=== PATIENT | female | born 1995 | race Hispanic/Latino ===

== ENCOUNTER → 2022-01-01 | Outpatient (CLI) | payer BC | END | disposition home or self-care (01) | LOC: ICE 08:53 | PROVIDERS: ATTEND Hospitalist | DX: Z20.822 Contact with and (suspected) exposure to COVID-19 (principal) | CPT/HCPCS: 87426 ==

== ENCOUNTER 2022-10-23 10:01 | Emergency (ER) | payer OTHER, BC ==
[~2022-10-23] VITALS: Ht 165.1 cm; Wt 90.7 kg
[2022-10-23 10:06] VITALS: BP 123/78; PULSE 94; RESP 16; O2SAT 96
[2022-10-23 11:20] LABS: RAPID GROUP A STREP negative (NEGATIVE)
[2022-10-23 11:29] LABS: INFLUENZA TYPE A Negative For Type A (NEGATIVE)
[2022-10-23 12:17] LABS: INFLUENZA TYPE B Positive For Type B (NEGATIVE)
[2022-10-23 12:18] LABS: SARS-CoV-2, RNA, NAAT POSITIVE SARS CoV-2 (NEGATIVE)
[2022-10-23] MEDS ORDERED: BENZ200C53 PO (12:21)
[2022-10-23] MEDS ORDERED: OSEL75 PO (12:21)
[2022-10-23] MEDS ORDERED: ALBU90AE2 IH (12:21)
[2022-10-23] MEDS ORDERED: IBUP-2070 PO (12:21)
[2022-10-23] MEDS ORDERED: D-ME118S47 PO (12:33)
[2022-10-23 13:11] LABS: BILIRUBIN,URINE NEGATIVE (NEGATIVE); COLOR,URINE LIGHT-YELLOW (YELLOW); GLUCOSE, URINE (UA) NEGATIVE (NEGATIVE); KETONES,URINE NEGATIVE (NEGATIVE); LEUKOCYTE ESTERASE ,URINE NEGATIVE Leu/uL (NEGATIVE); NITRATE,URINE NEGATIVE (NEGATIVE); OCCULT BLOOD,URINE NEGATIVE (NEGATIVE); PH,URINE 7.5 (5.0-8.0); PROTEIN,URINE 10 mg/dL (NEGATIVE); UROBILINOGEN,URINE 0.2 mg/dL (0.2-1.0)
[2022-10-23 13:12] LABS: ADD UA MICROSCOPIC YES; APPEARANCE,URINE HAZY (CLEAR)
[2022-10-23 13:38] LABS: BACTERIA,URINE RARE /HPF (None Seen); MUCUS,URINE RARE LPF (None Seen); RBC,URINE 0-1 /HPF (0-1); SQUAMOUS EPITHELIAL CELL,UR FEW /HPF (0-2); WBC,URINE 0-1 /HPF (0-1)
[2022-10-23 13:43] LABS: HCG,QUALITATIVE URINE NEGATIVE (NEGATIVE)
== END 2022-10-23 13:40 | disposition home or self-care (01) ==
LOC: EDH 10:01
DX: U07.1 COVID-19 (principal); J10.1 Influenza due to other identified influenza virus with other respiratory manifestations; B34.9 Viral infection, unspecified; Z79.899 Other long term (current) drug therapy; Z98.890 Other specified postprocedural states
CPT/HCPCS: 99285; 71045; 87635; 87880; 87804 ×2; 81001; 81025; 93005; C9803

== ENCOUNTER → 2023-01-31 | Outpatient (CLI) | payer OTHER, BC ==
[~2023-01-31] MED LIST: ALBU90AE2 IH; BENZ200C53 PO; BROM118S48 PO; IBUP-2070 PO; OSEL75 PO
[2023-01-31 12:02] LABS: THYROID STIMULATING HORMONE 3.9 uIU/mL (0.36-3.74)
== END | disposition home or self-care (01) ==
LOC: LAB 09:40
PROVIDERS: ATTEND Psychiatry & Neurology Neurology
DX: G43.909 Migraine, unspecified, not intractable, without status migrainosus (principal)
CPT/HCPCS: 36415; 82607; 84443; 86592

== ENCOUNTER → 2024-01-26 | Outpatient (CLI) | payer OTHER ==
[~2024-01-26] MED LIST changes: -ALBU90AE2 IH; +ALBU90AE3 IH
== END | disposition home or self-care (01) ==
LOC: LAB 11:24
PROVIDERS: ATTEND Obstetrics & Gynecology
DX: Z13.79 Encounter for other screening for genetic and chromosomal anomalies (principal); Z3A.18 18 weeks gestation of pregnancy
CPT/HCPCS: 36415; 81420; 81422; 82105

== ENCOUNTER 2024-02-17 10:16 | Emergency (ER) | payer OTHER ==
[~2024-02-17] VITALS: Ht 167.6 cm; Wt 100.2 kg
[2024-02-17 10:17] VITALS: BP 110/74; PULSE 85; RESP 16; TEMP 97.9
--- NOTE | 2024-02-17 10:58 | ERN ---
ED Note History of Present Illness Stated Complaint: SORE THROAT, HEADACHE, COUGH Chief Complaint: Sore Throat Time Seen by MD: 10:20 Dictation: Patient is a 28-year-old female past history of migraines came to the ED with chief complaint of sore throat since this morning. Patient has been having headaches, sore throat, cough, 1 episode vomiting since this morning, patient is a 21 week . Patient denies chills, fever, shortness of breath, chest pain. Patient also informed about pain in the throat on swallowing Allergies: Coded Allergies: No Known Allergies (Unverified Allergy, Unknown, 10/23/22) Home Meds Active Scripts D-Methorphan Hb/P-Epd HCl/Bpm (Bromfed Dm Cough Syrup) 118 Ml Syrup, 10 ML PO Q4HPRN PRN for COUGH for 10 Days, #200 ML Prov:ARUNA URENA V [facility] 10/23/22 Albuterol Sulfate (Proair Digihaler) 90 Mcg Aer.pw.bas, 90 MCG IH TID, #1 BOTTLE Prov:ARUNA URENA V [facility] 10/23/22 Ibuprofen (Ibuprofen) 600 Mg Tablet, 600 MG PO Q6H PRN for PAIN, #30 TAB Prov:ARUNA URENA [facility] 10/23/22 Benzonatate (Benzonatate) 200 Mg Capsule, 200 MG PO TID PRN for COUGH for 14 Days, #42 CAP Prov:ARUNA URENA V [facility] 10/23/22 Oseltamivir Phosphate (Tamiflu) 75 Mg Cap, 75 MG PO BID, #10 CAP Prov:ARUNA URENA V [facility] 10/23/22 Past Medical History Past Medical History: Migraines, Other Additional Past Medical Hx: NOSE POLYPS, Surgical History: Other Surgical History Other: NASAL POLYPECTOMY LMP: Sep 21, 2023 : 1 Para: 0 Aborts: 0 Review of System Dictation Constitutional-no weight loss/gain, patient complains of chills and fever Eyes-no injury, pain, redness and discharge ENT-no injury, pain, swelling Cardiovascular no chest pain, palpitations, edema Respiratory no shortness of breath, wheezing. Patient has sore throat and cough Abdomen/GI-no abdominal pain, diarrhea, constipation, nausea. Patient had 1 episode of vomiting Back no injury and pain Genitourinary no injury, bleeding and discharge Musculoskeletal/extremities no injury, deformity Skin no rash, discoloration Neuro-no weakness, numbness, tingling, seizures, tremors. Patient complains of headache Psych-no suicidal ideation, homicidal ideation, hallucinations, depression, anxiety, memory loss Initial Vital Sign VS Vital Signs Date Time Temp Pulse Resp B/P (MAP) Pulse Ox O2 Delivery O2 Flow Rate FiO2 02/17/24 10:17 97.9 85 16 110/74 97 Room Air 0 Physical Exam Dictation General-patient is awake alert and oriented Head/neck-normocephalic, atraumatic posterior pharynx looks erythematous Eyes-PERRL, EOMI, vision at baseline Neck-trachea midline, supple, no nuchal rigidity Cardiovascular-RRR, normal S1/S2, no MRG is, no JVD Respiratory-no distress, wheezing, rales, rhonchi Abdomen-no tenderness, guarding, soft, nondistended Skin warm, dry, normal turgor, no rash Musculoskeletal/extremities pulses equal, no cyanosis Neuro-COA X 4, GCS 15, strength 5/5, CN 2-12 intact Psych-normal behavior, mood and affect normal Results (Laboratory/Radiology) Laboratory/Radiology Laboratory Tests Test 02/17/24 10:35 Influenza Type A Antigen Negative For Type A Influenza Type B Antigen Negative For Type B SARS-CoV-2 Antigen (Rapid) PRESUMPTIVE NEGATIVE Group A Streptococcus Rapid negative (NEGATIVE) ED Course ED Course Orders Procedure Category Date Status Time Influenza Type A & B, LAB 02/17/24 Complete Rapid 10:30 Covid19 (Sars Antigen LAB 02/17/24 Complete Rapid) 10:30 Rapid (Group A Strep) LAB 02/17/24 Complete 10:30 Mag/Alum/Simeth 30ml PHA 02/17/24 Complete (Maalox Plus 30ml) 11:30 Current Medications Medications (Trade) Dose Ordered Sig/Heavenly Route PRN Reason Start Time Stop Time Status Last Admin Dose Admin Al Hydroxide/Mg Hydroxide (MAALox PLUS 30ML) 15 ml ONCE ONCE PO 02/17/24 11:30 02/17/24 11:31 DC 02/17/24 11:38 Vital Signs Date Time Temp Pulse Resp B/P (MAP) Pulse Ox O2 Delivery O2 Flow Rate FiO2 02/17/24 10:17 97.9 85 16 110/74 97 Room Air 0 Medical Decision Making MDM INITIAL IMPRESSION Initial history and physical concerning for upper respiratory tract infection Contributing medical problems: I have reviewed the triage nursing notes and vital signs. Initial plan: Laboratory evaluation DATA REVIEW I have reviewed additional NN, repeat VS, and monitoring where indicated. Heart rate, blood pressure, and O2 saturation are acceptable. ED COURSE Interventions: None Reassessment: Not indicated DISPOSITION Final diagnostic impression: Upper respiratory tract viral infection I discussed my findings, clinical impression and treatment recommendations with the patient. My final plan for disposition was made based upon -mild risk of complications and potential morbidity of the patient's condition. -Discussion with the patient regarding management options. Patient will be discharged DX & DISP Disposition: Discharge Departure Impression: Primary Impression: Acute viral disease Critical Time: 30 minutes Condition: Stable Additional Instructions: Come back to the ED if you have any acute or emergency symptoms Gargle with warm salt water several times a day to help reduce swelling and relieve pain. Mix teaspoon (2.5 mL) of salt in 1 cup (250 mL) of warm water. Be careful when taking [id number] cold or influenza (flu) medicines and Tylenol at the same time. Many of these medicines have acetaminophen, which is Tylenol. Read the labels to make sure that you are not taking more than the recommended dose. Too much acetaminophen (Tylenol) can be harmful. Drink plenty of fluids. Fluids may help soothe an irritated throat. Hot fluids, such as tea or soup, may help decrease throat pain. Use [id number] throat lozenges to soothe pain. Regular cough drops or hard candy may also help. These should not be given to young children because of the risk of choking. Do not smoke or allow others to smoke around you. If you need help quitting, talk to your doctor about stop-smoking programs and medicines. These can increase your chances of quitting for good. Use a vaporizer or humidifier to add moisture to your bedroom. Follow the directions for cleaning the machine. Referrals: CORINE HERNANDEZ MD (PCP) Time of Disposition: 11:45 I have reviewed I have reviewed the case I WAS PRESENT AND PARTICIPATED IN THE CARE OF THIS PATIENT ALONGSIDE WITH THE RESIDENT PHYSICIAN. I HAVE REVIEWED AND PERSONALLY MADE AND APPROVED THE MANAGEMENT PLAN THAT IS DOCUMENTED IN THE NOTE BY MYSELF WITH THE RESIDENT PHYSICIAN. I ACKNOWLEDGED FOR RESPONSIBILITY FOR THE PATIENT'S MANAGEMENT PLAN. I have examined patient MARLEEN FLANAGAN MD Feb 17, 2024 10:58 SAMANTA BERGER MD Feb 20, 2024 09:02
[2024-02-17 11:09] LABS: RAPID GROUP A STREP negative (NEGATIVE)
[2024-02-17 11:19] LABS: COVID19 (SARS ANTIGEN RAPID) PRESUMPTIVE NEGATIVE (NEGATIVE); INFLUENZA TYPE A Negative For Type A (NEGATIVE); INFLUENZA TYPE B Negative For Type B (NEGATIVE)
[2024-02-17] MEDS: MAG/ALUM/SIMETH 30 ML UDCUP PO ONE (11:38)
== END 2024-02-17 12:08 | disposition home or self-care (01) ==
LOC: EDH 10:16
DX: O98.512 Other viral diseases complicating pregnancy, second trimester (principal); B34.9 Viral infection, unspecified; Z20.822 Contact with and (suspected) exposure to COVID-19; O21.9 Vomiting of pregnancy, unspecified; Z3A.21 21 weeks gestation of pregnancy
CPT/HCPCS: 87426; 87804; 87880

== ENCOUNTER → 2024-06-02 | Outpatient (CLI) | payer OTHER, MEDICAID ==
[2024-06-02 13:22] LABS: AMPHET/METH SCREEN,URINE NEGATIVE (NEGATIVE); BARBITURATE SCREEN, URINE NEGATIVE (NEGATIVE); BENZODIAZEPINES SCREEN,URINE NEGATIVE (NEGATIVE); CANNABINOID SCREEN,URINE NEGATIVE (NEGATIVE); COCAINE SCREEN,URINE NEGATIVE (NEGATIVE); OPIATE SCREEN,URINE NEGATIVE (NEGATIVE); PHENCYCLIDINE SCREEN,URINE NEGATIVE (NEGATIVE)
[2024-06-02 14:07] LABS: HIV 1&2 ANTIBODY Non-Reactive (Negative); HIV-1 p24 Antigen Non-Reactive (Negative)
[2024-06-02 16:17] LABS: HEMATOCRIT 34.4 % (36-48); MEAN CORPUSCULAR HEMOGLOBIN 27.6 pg (27.0-33.0); MEAN CORPUSCULAR HGB CONC 31.1 g/dL (32.0-36.0); MEAN CORPUSCULAR VOLUME 88.9 fL (79-99); RED BLOOD CELL COUNT(AUTO) 3.87 MIL/uL (4.00-5.50); RED CELL DISTRIBUTION WIDTH 13.8 % (11.0-15.5); WHITE BLOOD COUNT (AUTO) 7.6 K/uL (4.8-10.8)
[2024-06-03 13:34] LABS: RAPID PLASMA REAGIN NONREACTIVE (NONREACTIVE)
== END | disposition home or self-care (01) ==
LOC: LAB 13:01
PROVIDERS: ATTEND Obstetrics & Gynecology
DX: Z36.9 Encounter for antenatal screening, unspecified (principal); Z3A.36 36 weeks gestation of pregnancy
CPT/HCPCS: 36415; 80305; 85027; 86592; 86701; 87088; 87390

== ENCOUNTER → 2025-02-07 | Outpatient (CLI) | payer OTHER, MEDICAID ==
[~2025-02-07] MED LIST changes: +IBUP-1492 PO; -IBUP-2070 PO
[2025-02-07 10:36] LABS: IMMATURE GRANULOCYTE ABSOLUTE 0.02 K/uL (0-1); NUCLEATED RED BLOOD CELLS 0.0 % (0.0-0.19); PLATELET COUNT (AUTO) 318 K/uL (130-400); RED BLOOD CELL COUNT(AUTO) 4.53 MIL/uL (4.00-5.50); RED CELL DISTRIBUTION WIDTH 14.1 % (11.0-15.5); WHITE BLOOD COUNT (AUTO) 7.2 K/uL (4.8-10.8)
[2025-02-07 10:43] LABS: APPEARANCE,URINE CLEAR (CLEAR); GLUCOSE, URINE (UA) NEGATIVE (NEGATIVE); LEUKOCYTE ESTERASE ,URINE NEGATIVE Leu/uL (NEGATIVE); NITRATE,URINE NEGATIVE (NEGATIVE); OCCULT BLOOD,URINE NEGATIVE (NEGATIVE)
[2025-02-07 10:44] LABS: ERYTHROCYTE SEDIMENTATION RATE 18 MM/HR (0-20)
[2025-02-07 10:45] LABS: ADD UA MICROSCOPIC NO
[2025-02-07 11:04] LABS: ASPARTATE AMINOTRANSFERASE 21.0 U/L (10-37); CREATININE 0.7 mg/dL (0.5-1.0); GLOMERULAR FILTR. RATE CALC 121.0 mL/min (>90); GLUCOSE,RANDOM 95.0 mg/dL (70-105); LDL DIRECT 89.0 mg/dL (0-99); SODIUM SERUM 134.0 mmol/L (136-145); TOTAL PROTEIN, SERUM 8.4 g/dL (6.0-8.3); UREA NITROGEN, BLOOD 12.0 mg/dL (7-18)
== END | disposition home or self-care (01) ==
LOC: LAB 09:49
PROVIDERS: ATTEND Internal Medicine Nephrology
DX: E66.9 Obesity, unspecified (principal); R51.9 Headache, unspecified; R53.83 Other fatigue; R73.09 Other abnormal glucose
CPT/HCPCS: 36415; 80053; 80061; 81003; 83036; 84443; 85025; 85651; 86140

== ENCOUNTER → 2025-02-23 | Outpatient (CLI) | payer OTHER, MEDICAID ==
--- NOTE | 2025-02-24 01:40 | HMCIMG ---
THYROID ULTRASOUND REPORT INDICATION: Headache, unspecified. TECHNIQUE: High-resolution real-time ultrasound of the thyroid gland with grayscale and color Doppler imaging. COMPARISON: None provided. FINDINGS: The right lobe of the thyroid: The right thyroid lobe measures 5.0 x 1.8 x 1.9 cm. The echotexture is heterogeneous. No thyroid nodules are identified. No abnormal cervical lymph nodes are seen adjacent to the right lobe. The left lobe of the thyroid: The left thyroid lobe measures 3.9 x 1.6 x 1.5 cm. The echotexture is heterogeneous. No thyroid nodules are identified. No abnormal cervical lymph nodes are seen adjacent to the left lobe. The thyroid isthmus: The thyroid isthmus measures 0.3 cm. No nodules are present. IMPRESSION: Heterogeneous thyroid gland without discrete thyroid nodules. Findings suggestive of thyroiditis. Recommend clinical correlation. TI-RADS scoring is not applicable in the absence of thyroid nodules. /Gem
== END | disposition home or self-care (01) ==
LOC: RAH 14:51
PROVIDERS: ATTEND Internal Medicine Nephrology
DX: R51.9 Headache, unspecified (principal)
CPT/HCPCS: 76536